=== PATIENT | female | born 1965 | race Caucasian/White ===

== ENCOUNTER → 2017-02-01 | Outpatient (CLI) | payer BC ==
--- NOTE | 2017-02-01 10:50 | US ---
EXAMINATION TYPE: US thyroid st tissue head/neck DATE OF EXAM: 02/01/2017 7:58 AM COMPARISON: NONE CLINICAL HISTORY: E04.1 L Thyroid Nodule. enlarged thyroid on dr's exam; no previous imaging, no thyr oid medications GLAND SIZE: Right Lobe: 5.1 x 1.6 x 1.5 cm Left Lobe: 5.9 x 2.6 x 2.6 cm Isthmus Thickness: 0.5 cm NODULES RIGHT: # of nodules measured on right: 3 1. 0.9 X 0.5 x 0.8 cm hypoechoic mixed nodule at the upper pole with poorly defined margins. This nodule is wider than tall and very hypervascular. Prior size: no previous 2. 0.5 X 0.3 x 0.4 cm hypoechoic mixed nodule at the mid to upper pole with well-defined margins. T his nodule is wider than tall and shows no intranodular vascularity. Prior size: no previous 3. 0.5 cm hypoechoic cystic nodule at the mid pole with well-defined margins. This nodule is wider t blank tall and shows no intranodular vascularity. Prior size: no previous LEFT: # of nodules measured on left: 2 1. 3.5 X 2.4 x 3.5 cm isoechoic heterogeneous solid nodule at the lower pole with well-defined darshana ins. This nodule is wider than tall and shows intranodular vascularity. Prior size: no previous 2. 0.9 X 0.8 x 1.2 cm isoechoic solid nodule at the mid pole with well-defined margins. This nodule is wider than tall and shows intranodular vascularity. Prior size: no previous ISTHMUS: # of nodules measured in the isthmus: 0 TECHNOLOGIST IMPRESSION: Bilateral neck scanned, no abnormal lymphadenopathy noted. Bilateral nodule s. IMPRESSION: 1. Bilateral thyroid nodules. Largest within the left with additional subcentimeter nodules present b ilaterally. Follow-up is recommended.
== END | disposition home or self-care (01) ==
LOC: RADUSWWP 07:44
PROVIDERS: ATTEND Otolaryngology
DX: E04.2 Nontoxic multinodular goiter (principal)
CPT/HCPCS: 76536

== ENCOUNTER → 2018-08-01 | Outpatient (CLI) | payer BC ==
--- NOTE | 2018-08-01 17:12 | US ---
EXAMINATION TYPE: US thyroid st tissue head/neck DATE OF EXAM: 08/01/2018 COMPARISON: 02/01/2017 CLINICAL HISTORY: 52-year-old female E04.1 Thyroid Nodule. Follow up thyroid nodules TECHNIQUE: Multiple sonographic images of the thyroid gland are obtained. FINDINGS: GLAND SIZE: Right Lobe: 5.7 x 1.3 x 1.8 cm Overall Parenchyma: heterogenous Left Lobe: 6.3 x 2.6 x 2.9 cm Overall Parenchyma: heterogeneous Isthmus Thickness: 0.5 cm NODULES RIGHT: # of nodules measured on right: 3 1. 1.1 X 0.6 x 1.0 cm cystic nodule with internal solid component. This nodule is wider than tall a nd shows intranodular vascularity. Prior size: 0.9 x 0.5 x 0.8 cm 2. 0.6 X 0.4 x 0.6 cm hypoechoic mixed nodule at the mid/upper pole with well-defined margins. This nodule is wider than tall and shows no intranodular vascularity. Prior size: 0.5 x 0.3 x 0.4 cm 3. 0.5 X 0.3 x 0.4 cm hypoechoic mixed nodule at the mid pole with well-defined margins. This nodule is wider than tall and shows no intranodular vascularity. Prior size: 0.5 cm LEFT: # of nodules measured on left: 2 1. 3.6 X 2.5 x 3.5 cm isoechoic heterogeneous solid nodule at the lower pole with well-defined darshana ins. This nodule is wider than tall and shows intranodular vascularity. Prior size: 3.5 x 2.4 x 3.5 cm 2. 0.9 X 0.9 x 1.0 cm isoechoic solid nodule at the mid pole with poorly defined margins. This nodul e is taller than wide and shows no intranodular vascularity. Prior size: 0.9 x 0.8 x 1.2 cm ISTHMUS: # of nodules measured in the isthmus: 1 1. 0.7 X 0.3 x 0.5 cm hypoechoic mixed nodule with well-defined margins. This nodule is wider than tall and shows no intranodular vascularity. Prior size: 5 mm. Bilateral neck scanned, right neck: 1.2 x 0.4 x 0.7cm, prominent but not enlarged lymph node. Corrugated Sheet Material Sheeter notes: Enlarged heterogeneous gland with multiple bilateral nodules described above. IMPRESSION: 1. Dominant solid nodule in the left lobe measures 3.6 x 3.5 cm, unchanged from prior (3.5 x 3.5 cm). 2. Dominant nodule on the right is cystic with internal solid component measuring 1.1 x 1.0 cm versus 0.9 x 0.8 cm, previously. Stable to minimally increased in size. 3. Multinodular goiter.
== END | disposition home or self-care (01) ==
LOC: RADUSWWP 10:15
PROVIDERS: ATTEND Otolaryngology
DX: E04.2 Nontoxic multinodular goiter (principal)
CPT/HCPCS: 76536

== ENCOUNTER → 2018-08-24 | Outpatient (CLI) | payer BC ==
--- NOTE | 2018-08-27 13:23 | MM ---
Reason for exam: screening (asymptomatic). Physical Findings: A clinical breast exam by your physician is recommended on an annual basis and results should be correlated with mammographic findings. MG 3D Screening Mammo W/Cad Bilateral CC and MLO view(s) were taken. No prior studies available for comparison. The breast tissue is heterogeneously dense. This may lower the sensitivity of mammography. There is no discrete abnormality. ASSESSMENT: Benign, BI-RAD 2 RECOMMENDATION: Routine screening mammogram of both breasts in 1 year.
== END | disposition home or self-care (01) ==
LOC: RADMAMWWP 14:35
PROVIDERS: ATTEND Obstetrics & Gynecology
DX: Z12.31 Encounter for screening mammogram for malignant neoplasm of breast (principal)
CPT/HCPCS: 77063; 77067

== ENCOUNTER → 2019-05-08 | Outpatient (CLI) | payer BC ==
--- NOTE | 2019-05-08 12:08 | US ---
EXAMINATION TYPE: US thyroid st tissue head/neck DATE OF EXAM: 05/08/2019 COMPARISON: NONE CLINICAL HISTORY: E04.1 thyroid nodule. GLAND SIZE: Right Lobe: cm Overall Parenchyma: Left Lobe: cm Overall Parenchyma: Isthmus Thickness: cm NODULES RIGHT: # of nodules measured on right: 1. X x cm nodule at the pole with margins; . This nodule is and shows . Prior size: x x cm 2. X x cm nodule at the pole with margins; . This nodule is and shows . Prior size: x x cm 3. X x cm nodule at the pole with margins; . This nodule is and shows . Prior size: x x cm 4. X x cm nodule at the pole with margins; . This nodule is and shows . Prior size: x x cm LEFT: # of nodules measured on left: 1. X x cm nodule at the pole with margins; . This nodule is and shows . Prior size: x x cm 2. X x cm nodule at the pole with margins; . This nodule is and shows . Prior size: x x cm 3. X x cm nodule at the pole with margins; . This nodule is and shows . Prior size: x x cm 4. X x cm nodule at the pole with margins; . This nodule is and shows . Prior size: x x cm ISTHMUS: # of nodules measured in the isthmus: 1. X x cm nodule at the pole with margins; . This nodule is and shows . Prior size: x x cm Bilateral neck scanned, no evidence of lymphadenopathy. IMPRESSION: EXAMINATION TYPE: US thyroid st tissue head/neck DATE OF EXAM: 05/08/2019 COMPARISON: 08/01/2018 and 02/01/2017 CLINICAL HISTORY: E04.1 thyroid nodule. GLAND SIZE: Right Lobe: 5.0 x 1.8 x 1.3 cm Overall Parenchyma: heterogenous Left Lobe: 5.8 x 2.6 x 2.5 cm Overall Parenchyma: heterogeneous Isthmus Thickness: 0.8 cm NODULES RIGHT: # of nodules measured on right: 3 1. 0.7 X 0.5 x 0.5 cm isoechoic solid nodule at the upper/mid pole with poorly defined margins; . This nodule is wider than tall and shows intranodular vascularity. Prior size: 1.1 x 0.6 x 1.1 cm 2. 0.9 X 0.8 x 0.5 cm hypoechoic solid nodule at the mid pole with well-defined margins; . This nod ule is wider than tall and shows intranodular vascularity. Prior size = 0.6 X 0.4 x 0.6 cm 3. 0.5 X 0.5 x 0.3 cm isoechoic solid nodule at the mid pole with poorly defined margins; . This no dule is wider than tall and shows intranodular vascularity. Prior size: 0.5 x 0.3 x 0.4 cm LEFT: # of nodules measured on left: 2 1. 3.3 X 2.8 x 2.7 cm isoechoic mixed nodule at the lower pole with well-defined margins; . This n odule is wider than tall and shows intranodular vascularity. Prior size: 3.6 X 2.5 x 3.5 cm 2. 1.2 X 1.0 x 0.9 cm isoechoic solid nodule at the mid pole with poorly defined margins; . This no dule is wider than tall and shows intranodular vascularity. Prior size: 0.9 X 0.9 x 1.0 cm ISTHMUS: # of nodules measured in the isthmus: 1 1. 0.6 X 0.4 x 0.3 cm isoechoic solid nodule at the isthmus with poorly defined margins; . This no dule is wider than tall and shows intranodular vascularity. Prior size: 0.7 X 0.3 x 0.5 cm Bilateral neck scanned, no evidence of lymphadenopathy. right neck lymph node = 1.1 x 0.7 x 0.4 cm. This is nonenlarged as seen previously. IMPRESSION: Similar size of the numerous bilateral thyroid nodules in a multinodular goiter. The largest left dom inant nodule measures up to 3.3 cm and demonstrates no interval growth in comparison to the most yahir te available exam of 02/01/2017.
== END ==
LOC: RADUSWWP 08:55
PROVIDERS: ATTEND Otolaryngology
DX: E04.2 Nontoxic multinodular goiter (principal)
CPT/HCPCS: 76536